=== PATIENT | female | born 1970 | race African-American/Black ===

== ENCOUNTER 2021-10-18 15:10 | Emergency (ER) | payer OTHER ==
[2021-10-18] MEDS ORDERED: DIPHENHYDRAMINE 50 MG/ML VIAL ONE (15:30)
[2021-10-18] MEDS ORDERED: dexAMETHasone 10 MG/ML VIAL ONE ×2 (15:30→15:48)
[2021-10-18] MEDS ORDERED: NA CHLORIDE 0.9% 0 ML ONE (15:30)
[2021-10-18] MEDS ORDERED: FAMOTIDINE 20 MG/2 ML VIAL IV ONE (15:39)
[2021-10-18] MEDS ORDERED: DIPHENHYDRAMINE 25 MG TAB/CAP ONE (15:47)
[2021-10-18] MEDS ORDERED: FAMOTIDINE 20 MG TAB ONE (15:48)
--- NOTE | 2021-10-18 18:08 | EDPHYS ---
Physician Documentation [facility] Name: Janna Gonzalez Age: 51 yrs Sex: Female : 1970 Arrival Date: 10/18/2021 Time: 15:12 Bed 6 Private MD: ED Physician Maris Miles HPI: 10/18 15:23 This 51 yrs old Black Female presents to ER via Ambulatory with complaints of Lips jmm Swelling, Allergic Reaction. 15:23 This is a 51-year-old female with history of hypertension the presents emerged part [facility] with complaints of upper lip swelling along with itching to her throat which began earlier today. Patient states this is happened in the past but worse today. Denies shortness of breath but states she became concerned when she developed an itching sensation to the throat. Denies vomiting. Patient states she does take lisinopril for blood pressure. Historical: - Allergies: 15:22 No Known Allergies; ap3 - Home Meds: 15:22 Lisinopril Oral [Active]; ap3 - PMHx: 15:22 Hypertensive disorder; ap3 - Immunization history:: Client reports receiving the 2nd dose of the Covid vaccine. - Social history:: Smoking status: Patient denies any tobacco usage or history of. Patient uses alcohol, occasionally. ROS: 15:23 Constitutional: Negative for fever, chills, and weight loss, Cardiovascular: Negative jmm for chest pain, palpitations, and edema, Respiratory: Negative for shortness of breath, cough, wheezing, and pleuritic chest pain. 15:23 Back: Negative for injury and pain, MS/Extremity: Negative for injury and deformity, Skin: Negative for injury, rash, and discoloration. 15:23 ENT: Positive for Swelling. 15:23 All other systems are negative. Exam: 15:23 Constitutional: This is a well developed, well nourished patient who is awake, alert, jmm and in no acute distress. Head/Face: atraumatic. Eyes: EOMI, no conjunctival erythema appreciated 15:23 Neck: Trachea midline, Supple Chest/axilla: Normal chest wall appearance and motion. Cardiovascular: Regular rate and rhythm. No edema appreciated Respiratory: Normal respirations, no respiratory distress appreciated Abdomen/GI: Non distended Back: Normal ROM Skin: General appearance color normal MS/ Extremity: Moves all extremities, no obvious deformities appreciated, no edema noted to the lower extremities Neuro: Awake and alert Psych: Behavior is normal, Mood is normal, Patient is cooperative and pleasant 15:23 ENT: Posterior pharynx: Airway: normal, Angioedema noted to the upper lip, no tongue swelling appreciated, no oropharyngeal edema appreciated. Vital Signs: 15:19 BP 180 / 89; Pulse 124; Resp 19; Temp 98.4; Pulse Ox 100% ; Weight 92.08 kg; Height 5 ap3 ft. 9 in. (175.26 cm); 15:29 Pulse 98; ph 16:10 BP 132 / 66; Pulse 87; Resp 16; Pulse Ox 100% on R/A; bm7 16:54 BP 163 / 68; Pulse 78; Resp 16; Pulse Ox 100% on R/A; Pain 0/10; bm7 17:37 BP 118 / 66; Pulse 76; Resp 16; Pulse Ox 100% on R/A; Pain 0/10; bm7 15:19 Body Mass Index 29.98 (92.08 kg, 175.26 cm) ap3 MDM: 15:23 Patient medically screened. [facility] 18:07 Data reviewed: vital signs, nurses notes. Counseling: I had a detailed discussion with gwen the patient and/or guardian regarding: the historical points, exam findings, and any diagnostic results supporting the discharge/admit diagnosis, the need for outpatient follow up, to return to the emergency department if symptoms worsen or persist or if there are any questions or concerns that arise at home. 23:55 ED course: Patient was observed in the ER without any progressive swelling. Patient jmm given a course of steroids. Patient advised to discontinue lisinopril. Patient advised to follow-up PCP and otherwise given strict return precautions. Patient understood and agrees plan of care.. Administered Medications: 15:47 CANCELLED (Patient Refused; pt refusing all IV medication at this time. Shine notified bm7 and verbal orders given to change to PO medss): NS 0.9% 1000 ml IV at 1 bolus Per protocol; 1000 mL bolus 15:48 Not Given (Patient Refused; pt refusing IV medications, verbal order given to change to bm7 PO): Pepcid (famotidine) 20 mg IVP once; dilute with 10 mL 0.9% NaCl; give over 2 minutes 15:48 Not Given (Patient Refused; pt refusing IV medications,verbal orders given to change to bm7 PO): Decadron - Dexamethasone 10 mg IVP once 15:49 CANCELLED (Patient Refused; pt refusing IV meds, verbal order given to change to po bm7 medss): diphenhydrAMINE 50 mg IVP once 15:51 Drug: Benadryl (diphenhydrAMINE) 50 mg Route: PO; bm7 16:12 Follow up: Response: No adverse reaction bm7 15:51 Drug: Pepcid (famotidine) 20 mg Route: PO; bm7 16:12 Follow up: Response: No adverse reaction bm7 15:51 Drug: Decadron - Dexamethasone 10 mg Route: IVP; Site: Other; bm7 16:12 Follow up: Response: No adverse reaction bm7 Disposition Summary: 10/18/21 18:07 Discharge Ordered Location: Home [facility] Condition: Stable [facility] Diagnosis - Angioedema [facility] Followup: [facility] - With: Private Physician - When: 2 - 3 days - Reason: Recheck today's complaints, Continuance of care, Re-evaluation by your physician Discharge Instructions: - Discharge Summary Sheet [facility] - Angioedema [facility] Forms: - Medication Reconciliation Form [facility] - Thank You Letter [facility] - Work release form [facility] - Antibiotic Education [facility] - Prescription Opioid Use [facility] Prescriptions: - Prednisone 20 mg Oral Tablet - take 3 tablets by ORAL route once daily for 5 days; 15 tablet; Refills: 0, [facility] Product Selection Permitted Signatures: Shine Santos PA PA [facility] Sobia Collins RN RN ap3 Alicia Mena, ROLAND RN 7 Corrections: (The following items were deleted from the chart) 15:47 15:23 NS 0.9% 1000 ml IV at 1 bolus Per protocol; 1000 mL bolus ordered. [place] [id number] 15:47 15:33 NS 0.9% 1000 ml IV at 1 bolus Per protocol; 1000 mL bolus ordered. [place] [id number] 15:49 15:23 IV Saline Lock ordered. [place] [id number] 15:49 15:23 diphenhydrAMINE 50 mg IVP once ordered. [place] [id number] 15:49 15:33 diphenhydrAMINE 50 mg IVP once ordered. [place] [id number]
--- NOTE | 2021-10-18 18:08 | ER ---
Nurse's Notes [facility] Name: Janna Gonzalez Age: 51 yrs Sex: Female : 1970 Arrival Date: 10/18/2021 Time: 15:12 Bed 6 Private MD: Diagnosis: Angioedema Presentation: 10/18 15:19 Chief complaint: Patient states: she started noticing her lips were swelling this ap3 morning at approx 10:00. She reports the swelling is getting progressively worse, and now she states her tongue and throat are starting to itch. patient reports taking lisinopril. Coronavirus screen: At this time, the client does not indicate any symptoms associated with coronavirus-19. Ebola Screen: No symptoms or risks identified at this time. Onset: The symptoms/episode began/occurred gradually, this morning, today. Anaphylaxis evaluation, angioedema. Initial Sepsis Screen: Does the patient meet any 2 criteria? HR > 90 bpm. Does the patient have a suspected source of infection? No. Patient's initial sepsis screen is negative. Risk Assessment: Do you want to hurt yourself or someone else? Patient reports no desire to harm self or others. Onset of symptoms was October 18, 2021 at 10:00. 15:19 Method Of Arrival: Ambulatory ap3 15:19 Acuity: MARIANA 2 ap3 Triage Assessment: 15:22 General: Appears distressed, Behavior is calm, cooperative. Pain: Denies pain. EENT: ap3 swelling to left upper lip. Neuro: Level of Consciousness is awake, alert, obeys commands, Oriented to person, place, time, situation, Gait is steady, Speech is normal. Cardiovascular: Patient's skin is warm and dry. Respiratory: Airway is patent Respiratory effort is even, unlabored. Musculoskeletal: Swelling present in upper lip. Historical: - Allergies: 15:22 No Known Allergies; ap3 - Home Meds: 15:22 Lisinopril Oral [Active]; ap3 - PMHx: 15:22 Hypertensive disorder; ap3 - Immunization history:: Client reports receiving the 2nd dose of the Covid vaccine. - Social history:: Smoking status: Patient denies any tobacco usage or history of. Patient uses alcohol, occasionally. Screenin:23 Abuse screen: Denies threats or abuse. Nutritional screening: No deficits noted. ap3 Tuberculosis screening: No symptoms or risk factors identified. 15:29 Fall Risk None identified. ph Assessment: 15:21 Reassessment: Patient appears in no apparent distress at this time. Patient is alert, ph oriented x 3, equal unlabored respirations, skin warm/dry/pink. Attempted IV start to RAC and IV infiltrated when flushed, pt states, " I am a hard stick, can I take the medication by mouth?" Told pt that she can discuss it w/ ERP when he comes in to assess her. No respiratory distress noted at this time, Spo2 100% RA. 15:25 General: Appears in no apparent distress. comfortable, well groomed, Behavior is calm, ph cooperative, appropriate for age. Pain: Denies pain. Neuro: Level of Consciousness is awake, alert, obeys commands, Oriented to person, place, time, situation. Cardiovascular: Capillary refill < 3 seconds in bilateral fingers Patient's skin is warm and dry. Respiratory: Airway is patent Respiratory effort is even, unlabored, Breath sounds are clear bilaterally. Denies shortness of breath. GI: No signs and/or symptoms were reported involving the gastrointestinal system. EENT: Reports " the top part of my throat feels scratchy.". Derm: Skin is intact, is healthy with good turgor, Skin is pink, warm \\T\\ dry. 15:33 Reassessment: ERP at bedside to assess. Pt refusing all IV medications and insertion. bm7 Pt only wants PO medications and NO IVS. ERP to change medication to PO status. 16:10 Reassessment: Patient and/or family updated on plan of care and expected duration. Pain bm7 level reassessed. Patient is alert, oriented x 3, equal unlabored respirations, skin warm/dry/pink. right side of upper lip is decreasing. In NAD. Respirations are equal and unlabored. Voices no complaints. Respiratory: Airway is patent Respiratory effort is even, unlabored, Respiratory pattern is regular, symmetrical, Breath sounds are clear bilaterally. Denies shortness of breath at rest, on exertion. 17:20 Reassessment: Pt comes out to the john and states that she doesn't have time to wait bm7 and wants to go. Patient says she has to go to work. ERP notified. Vital Signs: 15:19 BP 180 / 89; Pulse 124; Resp 19; Temp 98.4; Pulse Ox 100% ; Weight 92.08 kg; Height 5 ap3 ft. 9 in. (175.26 cm); 15:29 Pulse 98; ph 16:10 BP 132 / 66; Pulse 87; Resp 16; Pulse Ox 100% on R/A; bm7 16:54 BP 163 / 68; Pulse 78; Resp 16; Pulse Ox 100% on R/A; Pain 0/10; bm7 17:37 BP 118 / 66; Pulse 76; Resp 16; Pulse Ox 100% on R/A; Pain 0/10; bm7 15:19 Body Mass Index 29.98 (92.08 kg, 175.26 cm) ap3 ED Course: 15:12 Patient arrived in ED. mr 15:15 Shine Santos PA is PHCP. [facility] 15:15 Maris Miles is Attending Physician. [facility] 15:21 Delores John, RN is Primary Nurse. ph 15:21 Missed attempt(s): 22 gauge in right antecubital area. Bleeding controlled, band aid ph applied, catheter tip intact. 15:21 Patient has correct armband on for positive identification. Bed in low position. Call mb7 light in reach. Side rails up X 1. Door closed. Noise minimized. Warm blanket given. 15:22 Triage completed. ap3 15:22 Client placed on continuous cardiac and pulse oximetry monitoring. NIBP monitoring mb7 applied. shelter monitor on. Pulse ox on. NIBP on. 15:23 Arm band placed on right wrist. ap3 16:49 Assisted to bathroom. bm7 18:45 No provider procedures requiring assistance completed. Patient did not have IV access ph during this emergency room visit. Administered Medications: 15:47 CANCELLED (Patient Refused; pt refusing all IV medication at this time. Shine notified bm7 and verbal orders given to change to PO medss): NS 0.9% 1000 ml IV at 1 bolus Per protocol; 1000 mL bolus 15:48 Not Given (Patient Refused; pt refusing IV medications, verbal order given to change to bm7 PO): Pepcid (famotidine) 20 mg IVP once; dilute with 10 mL 0.9% NaCl; give over 2 minutes 15:48 Not Given (Patient Refused; pt refusing IV medications,verbal orders given to change to bm7 PO): Decadron - Dexamethasone 10 mg IVP once 15:49 CANCELLED (Patient Refused; pt refusing IV meds, verbal order given to change to po bm7 medss): diphenhydrAMINE 50 mg IVP once 15:51 Drug: Benadryl (diphenhydrAMINE) 50 mg Route: PO; bm7 16:12 Follow up: Response: No adverse reaction bm7 15:51 Drug: Pepcid (famotidine) 20 mg Route: PO; bm7 16:12 Follow up: Response: No adverse reaction bm7 15:51 Drug: Decadron - Dexamethasone 10 mg Route: IVP; Site: Other; bm7 16:12 Follow up: Response: No adverse reaction bm7 Medication: 15:28 VIS not applicable for this client. ph Outcome: 18:07 Discharge ordered by . gwen 18:45 Patient left the ED. ph 18:45 Discharged to home ambulatory. ph 18:45 Condition: good 18:45 Discharge instructions given to patient, Instructed on discharge instructions, follow up and referral plans. medication usage, Demonstrated understanding of instructions, follow-up care, medications, Prescriptions given X 1. Signatures: Shine Santos PA PA jmm Rivera, Mary mr Delores John RN RN Sobia Collins RN RN Alicia Campos RN RN [facility] [place] 7
[2021-10-18 19:15] VITALS: TEMP 98.4; O2SAT 100
[2021-10-18 19:24] VITALS: BP 118/66
== END 2021-10-18 18:45 | disposition home or self-care (01) ==
LOC: ER 15:10
DX: T78.3XXA Angioneurotic edema, initial encounter (principal); I10 Essential (primary) hypertension
CPT/HCPCS: 96374; 99284; J1100; J1200; J3490; J7030